=== PATIENT | female | born 1985 | race Caucasian/White ===

== ENCOUNTER → 2021-02-19 | Outpatient (CLI) | payer BC, OTHER ==
[~2021-02-19] MED LIST: ACETAMINOPHEN-1 EAC1 PO; AMBIEN; CYMBALTA; MEDROLDOSEPACK PO; PHENERGAN12.5 M1 RECTAL; ROBAXIN500 MG PO; TRAMADOL 50 MG50 MG PO; YASMIN 28 TABL1 EACH; ZOFRAN 4 MG ORAL4 M1 DIS; [UNRECOGNIZED DRUG - OTHER]
== END ==
LOC: LAB 08:45
PROVIDERS: ATTEND Psychiatry & Neurology Neurology
DX: Z01.812 Encounter for preprocedural laboratory examination (principal); Z20.822 Contact with and (suspected) exposure to COVID-19

== ENCOUNTER → 2021-02-23 | Outpatient (CLI) | payer BC, OTHER ==
--- NOTE | 2021-02-25 06:42 | SLE ---
[facility] [place] [address] POLYSOMNOGRAPHY STUDY Name: AVERY FLYNN Room #: [facility]#: [id number] Admission: 02/23/21 Attend Phys: Luly Crain DO Discharge: Date of : 87 Report #: [id number] THIS REPORT FOR: cc: FAM - Family physician unknown FAM - Family physician unknown Jarvis Mckeon MD ~ DATE OF SERVICE: 02/23/2021 SLEEP STUDY ATTENDING PHYSICIAN: Dr. Connie Crain. Patient is 35 years old who weighs 180 pounds with a BMI of 30.9. The patient has subjective hypersomnia with an [place] score of 15. The patient also has history of insomnia due to medical condition. The patient has prior sleep studies in the past with no significant sleep disordered breathing. The patient underwent a polysomnogram at [facility]. During the night study, the patient spent 550 minutes in bed and slept for 299 minutes with a low sleep efficiency of 54%. Sleep latency was 33 minutes with a REM latency of 347 minutes. Sleep architecture showed increased stage 1 and stage 2 sleep, reduced N3 sleep and slightly reduced REM sleep, which was 17% of the total sleep time. During the night study, the patient had no apneas. The patient had 1 hypopnea. The patient's AHI for the entire night was 0.2 per hour. There was no change during REM or supine sleep. EKG monitoring revealed an average heart rate of 67 beats per minute. No sustained arrhythmias observed. No clinically significant PLM seen. Nocturnal oximetry study revealed an average oxygen saturation of 97% with the lowest of 88%. No clinically significant nocturnal hypoxia observed. Due to reduced sleep efficiency of 54%, patient did not underwent MSLT the next day. Review of the patient's medications revealed that she took Ambien and Ativan for anxiety the night before. The patient's sleep diary also suggest insomnia, chronically. IMPRESSION: 1. No clinically significant sleep disordered breathing. The patient's AHI for the entire night was only 0.[address] [facility] [address] [place] [address] POLYSOMNOGRAPHY STUDY Name: AVERY FLYNN Room #: [facility]#: [id number] Admission: 02/23/21 Attend Phys: Luly Crain DO Discharge: Date of : 87 Report #: [id number] 2. Reduced sleep efficiency of 54%, resulting from sleep onset and sleep maintenance insomnia. Review of the patient's sleep diary reveals chronic sleep deprivation/insomnia. 3. No clinically significant nocturnal hypoxia. 4. No clinically significant periodic limb movements. RECOMMENDATIONS: 1. The patient did not meet the split night criteria for CPAP initiation due to very low AHI. 2. The patient's history and review of the sleep diary suggests chronic insomnia, which may be contributing to the patient's daytime sleepiness. Would recommend continued followup of her medical conditions contributing to insomnia, until improved. 3. The patient did not undergo multiple sleep latency test due to reduced sleep efficiency. 4. Weight loss is advised. 5. Avoid [employer] depressants. 6. Cautioned regarding driving until the patient's hypersomnia is resolved with above recommendations. <ELECTRONICALLY SIGNED> By: Jarvis Mckeon MD 02/25/21 [id number] Jarvis Mckeon MD /nt
== END ==
LOC: SLEEPLAB 02-15 11:36
PROVIDERS: ATTEND Psychiatry & Neurology Neurology
DX: G47.12 Idiopathic hypersomnia without long sleep time (principal)